=== PATIENT | female | born 1945 | race Caucasian/White ===

== ENCOUNTER 2023-11-16 11:34 | Emergency (ER) | payer MEDICARE, MEDICAID ==
[~2023-11-16] VITALS: Ht 172.7 cm; Wt 110.0 kg
[2023-11-16] MEDS: HYDROcodone/acetaminophen 10/325mg tab PO STA (12:00)
[2023-11-16 13:14] VITALS: BP 172/113; PULSE 78; RESP 19; O2SAT 99
[2023-11-16] MEDS ORDERED: HYDR-3965 PO (13:22)
== END 2023-11-16 14:38 | disposition home or self-care (01) ==
LOC: ER 11:34
DX: S16.1XXA Strain of muscle, fascia and tendon at neck level, initial encounter (principal); S86.812A Strain of other muscle(s) and tendon(s) at lower leg level, left leg, initial encounter; S46.912A Strain of unspecified muscle, fascia and tendon at shoulder and upper arm level, left arm, initial encounter; W18.39XA Other fall on same level, initial encounter; Y93.89 Activity, other specified; Y92.89 Other specified places as the place of occurrence of the external cause; Y99.8 Other external cause status
CPT/HCPCS: 71045; 72100; 72125; 73502; 73564; 73610; 99284